=== PATIENT | male | born 1970 | race Caucasian/White ===

== ENCOUNTER 2017-10-16 20:43 | Emergency (ER) | payer OTHER ==
[2017-10-16] MEDS: METHYLPREDNISOLONE 125 MG INJ IM (23:34)
[2017-10-16] MEDS: IPRATROPIUM (NEB) 0.5 MG/2.5 ML AMP HHN (23:37)
[2017-10-16] MEDS: ALBUTEROL 0.083% (NEB) 2.5 MG/3 ML AMP HHN (23:37)
== END 2017-10-17 01:16 | disposition home or self-care (01) ==
LOC: FTE 20:43
DX: J45.901 Unspecified asthma with (acute) exacerbation (principal)
CPT/HCPCS: 93005; 94664; 96372; 99284-25